=== PATIENT | female | born 1985 | race Caucasian/White ===

== ENCOUNTER 2021-07-09 04:58 | Emergency (ER) | payer OTHER, SELFPAY ==
--- NOTE | ~2021-07-09 | CT_ITS ---
EXAMINATION: CT abdomen pelvis wo con DATE: 07/09/2021 06:02 INDICATION: Right flank pain TECHNIQUE: Computed tomography (CT) of the abdomen and pelvis was performed without intravenous contr ast. Automated exposure control and iterative reconstruction technique were employed. Exam dose: 165 .89 mGy-cm total exam DLP. COMPARISON: 08/18/2005 CT renal scan FINDINGS: The lung bases are clear. Normal heart size. No pericardial or pleural effusion. The liver, gallbladder, bile ducts, spleen, pancreas, pancreatic duct and adrenal glands are unremark able. There are several nonobstructing right renal calculi, the largest approximately 4 mm. There is a pinp oint nonobstructing left renal calculus. There is an approximately 4 mm right ureterovesical junction calculus with mild right hydroureteronep hrosis. Normal caliber of the abdominal aorta. No intraperitoneal or retroperitoneal or pelvic mass lesion or adenopathy or ascites. The uterus and adnexal areas are unremarkable. The urinary bladder is relativ mame evacuated. No bowel obstruction or intraperitoneal free air. IMPRESSION: 4 mm right ureterovesical junction calculus with mild right hydroureteronephrosis Bilateral nephrolithiasis Reviewed, dictated and finalized at [facility]. Reviewed, dictated and finalized at [facility]. IMPRESSION: 4 mm right ureterovesical junction calculus with mild right hydrou reteronephrosis Bilateral nephrolithiasis
--- NOTE | ~2021-07-09 | XR_ITS ---
XR abdomen/kub 1V DATE: 07/09/2021 06:15 INDICATION: Right ureterovesical junction calculus TECHNIQUE: AP portable supine view COMPARISON: None FINDINGS: Approximate 4 mm calcified calculus is noted overlying the lower pole of the right kidney. No other definite urinary tract calcification is noted. No definite KUB correlate for the CT-demonstr ated right ureterovesical junction calculus is noted. There is a prominent amount of fecal material within the colon. No bowel obstruction is evident. The psoas shadows appear intact. No visceromegaly is noted. There is dextroscoliosis of the thoracic spine and levoscoliosis of the lumbar spine. IMPRESSION: Approximately 4 mm right renal lower pole calcified calculus Reviewed, dictated and finalized at [facility]. Reviewed, dictated and finalized at [facility].
[2021-07-09 05:04] VITALS: BP 149/105; PULSE 86; RESP 18; TEMP 36.6; O2SAT 99
--- NOTE | 2021-07-09 05:32 | ED.ABDPAIN ---
HPI - Abdominal Pain General Chief Complaint: Abdominal Pain Stated Complaint: kidney stone Time Seen by Provider: 07/09/21 05:14 Source: patient History of Present Illness HPI narrative: Patient presents with right-sided flank pain. Patient reports it woke her up from sleep this morning so she came to the ER for evaluation. Reports a history of ureteral stones and this feels like her prior stones. Reports stone typically are able to pass without procedural intervention. Pain is crampy, constant, primarily starts in her back and radiates across to her abdomen. She denies any urinary symptoms. Reports mild nausea denies any diarrhea. Denies prior abdominal surgeries Related Data Home Medications Medication Instructions Recorded Confirmed spironolactone 25 mg tablet 25 mg PO DAILY 06/01/21 06/01/21 norethindrone-e.estradiol-iron [Lo tablet 07/09/21 Loestrin Fe] Allergies Allergy/AdvReac Type Severity Reaction Status Date / Time No Known Allergies Allergy Verified 07/09/21 05:06 Review of Systems Review of Systems: CONSTITUTIONAL: Denies fever, chills, or sweats. EYES: Denies visual changes, redness, or discharge. ENT: Denies rhinorrhea, congestion, sore throat, or otalgia. CARDIOVASCULAR: Denies chest pain, palpitations, or edema. RESPIRATORY: Denies cough or dyspnea. GASTROINTESTINAL: Reports abdominal pain and nausea GENITOURINARY: Denies dysuria or hematuria. SKIN: Denies rash or itching. MUSCULOSKELETAL: Denies joint pain, or myalgia. NEUROLOGIC: Denies headache, numbness, dizziness, or weakness. PSYCHIATRIC: Denies anxiety or depression. All systems reviewed & are unremarkable except as noted in HPI and below PMFSH Past Medical History Medical History BMI 23.0-23.9, adult Family History Family History Father Family history of kidney stones COVID-19 Grandparent Family history of malignant neoplasm of breast Diabetes mellitus Mother History of migraine headaches Sibling No problems noted. Social History Social History Smoking status: Never smoker Second hand tobacco smoke exposure: Yes Alcohol intake: current Substance use: current Substance use type: marijuana Additional occupation/education comments: domestic goddess Gender identity (if verbalized by the patient): Female Exam Narrative: GENERAL: Well-appearing, well-nourished, in mild distress due to pain HEAD: Normocephalic, atraumatic. EYES: PERRLA and EOMI. ENT: Nares clear, no rhinorrhea or epistaxis. Mucous membranes moist. NECK: Supple. No masses. No JVD ABDOMEN: Soft, unable to reproduce pain with palpation of the abdomen nondistended, no CVA tenderness EXTREMITIES: Normal range of motion. No edema. SKIN: Warm, dry, no rash. NEURO: No focal deficits. Alert and oriented x3. PSYCH: Normal mood and affect. Course Reevaluation(s) Reevaluation #1: Patient with mild improved and pain results reviewed with patient. Based on size and location patient still may pass on its own however based on the size we will do outpatient referral to urology. We will continue supportive therapies at home. Patient comfortable with outpatient plan. Date: 07/09/21 Time: 06:58 Vital Signs Vital signs: Vital Signs Temperature 36.6 C 07/09/21 05:04 Pulse Rate 86 07/09/21 05:04 Respiratory Rate 18 07/09/21 05:04 Blood Pressure 149/105 H 07/09/21 05:04 Pulse Oximetry 99 07/09/21 05:04 Temperature 36.6 C 07/09/21 05:04 Pulse Rate 64 07/09/21 06:18 Respiratory Rate 20 07/09/21 06:18 Blood Pressure 121/93 H 07/09/21 06:18 Pulse Oximetry 100 07/09/21 06:18 MDM - Abdominal Pain MDM Narrative Medical decision making narrative: H&P as above, vss, pt looks clinically well, exam is unable to reproduce pain, labs with he
[2021-07-09 05:33] LABS: Basophils Percent Auto 0.1 % (0.2-1.2); Eosinophils Absolute Auto 0.1 K/mm3 (0-0.3); Eosinophils Percent Auto 1.2 % (0-4.4); Hematocrit 39.5 % (37.0-47.0); Hemoglobin 14.1 g/dL (12.0-15.0); Immature Granulocyte Absolute 0.01 K/mm3 (0.00-0.031); Immature Granulocyte Percent A 0.1 % (0-0.5); Lymphocytes Absolute Auto 3.23 K/mm3 (0.9-3.2); Lymphocytes Percent Auto 42.3 % (18.3-44.2); Mean Corpuscular HGB Conc 35.7 g/dl (32-36); Mean Corpuscular Hemoglobin 32.4 pg (26-34); Mean Corpuscular Volume 90.8 fl (80-100); Mean Platelet Volume 9.8 fl (7.4-10.4); Monocytes Absolute Auto 0.5 K/mm3 (0.1-0.6); Monocytes Percent Auto 5.9 % (2.6-8.5); Neutrophils Absolute Auto 3.8 K/mm3 (1.3-6.7); Neutrophils Percent Auto 50.4 % (45.5-73.1); Platelet Count Result 317 k/mm3 (150-375); Red Blood Count 4.35 M/mm3 (4.2-5.4); Red Cell Distribution Width 12.1 % (11.5-14.5); White Blood Count 7.6 K/mm3 (4.5-10.0)
[2021-07-09] MEDS: SODIUM CHLORIDE 0.9% IV 1,000 ML 999 ML IV CONT (05:36)
[2021-07-09] MEDS: MORPHINE SULFATE (*CRX) 4 MG/ML INJ IV PUSH ×2 (05:37→06:07)
[2021-07-09 05:46] LABS: Anion Gap 11 mmol/L (8-16); Blood Urea Nitrogen 14 mg/dL (7-17); Calcium 9.3 mg/dL (8.4-10.2); Carbon Dioxide 22 mmol/L (22-30); Chloride 105 mmol/L (98-107); Estimated Glomerular Filt Rate > 60; Glucose 172 mg/dL (65-110); Potassium 3.5 mmol/L (3.4-5.0); Sodium 138 mmol/L (137-145)
[2021-07-09 05:47] LABS: Add Urine Microscopic? YES; Appearance Urine Cloudy (Clear); Bacteria Urine Trace /hpf; Bilirubin Urine Negative (Negative); Blood Urine 3+ (Negative); Color Urine Yellow (Yellow); Glucose Urine UA Negative (Negative); Ketones Urine 1+ mg/dL (Negative); Leukocyte Esterase Ur Negative LEU/UL (Negative); Mucus Urine Rare /lpf; Nitrate Urine Negative (Negative); Protein Urine Negative (Negative); RBC Urine 21-50 /hpf (0-2); Specific Grav Ur 1.017 (1.001-1.035); Squamous Epithelial Cell Urine Many /hpf (Few); Urobilinogen Urine Negative mg/dL (<2.0)
[2021-07-09 06:18] VITALS: BP 121/93; PULSE 64; RESP 20; O2SAT 100
[2021-07-09] MEDS: HYDROmorphone HCL INJ (*CRX) 1 MG/ML SYR 0.5 MG IV PUSH (06:26)
[2021-07-09] MEDS: KETOROLAC 15 MG/ML VIAL (*BKC) IV PUSH (07:17)
[2021-07-09 07:43] VITALS: BP 123/73; PULSE 68; RESP 15; O2SAT 100
== END 2021-07-09 07:44 | disposition home or self-care (01) ==
PROVIDERS: Emergency Provider Emergency Medicine; PCP Family Medicine
DX: N13.2 Hydronephrosis with renal and ureteral calculous obstruction (principal); R31.9 Hematuria, unspecified
CPT/HCPCS: 36415; 74018; 74176; 80048; 81001; 81025; 85025; 96361; 96374; 96375; 96376; 99284; J1170; J1885; J2270; J7030

== ENCOUNTER 2022-06-19 19:53 | Emergency (ER) | payer OTHER, SELFPAY ==
--- NOTE | 2022-06-19 19:54 | ED.FEMALEGU ---
HPI - Female Genitourinary General Chief complaint: Urogenital-Female Stated complaint: UTI Time Seen by Provider: 06/19/22 19:54 Source: patient Mode of arrival: ambulatory Limitations: no limitations History of Present Illness HPI Narrative: Ms. Garay is a 36-year-old female patient presenting to the clinic today with complaints of possible UTI. She reports she started having some pain over her bladder and right lower abdomen and now it is radiating into her back. She does have a history of kidney stones and states that it does not necessarily feel like a kidney stone at this time. She reports that the pain started around 1:00 today and has gradually increased and gotten worse. She rates her pain currently a 7 out of 10. States that the pain in the back is more achy and then is sharp in the right lower abdomen and pelvis. She denies any vaginal discharge. Last menstrual period was 2-1/2 weeks ago. Related Data Home Medications Medication Instructions Recorded Confirmed norethindrone 1 mg-ethinyl tablet 07/09/21 estradiol 10 mcg (24)-iron 10 mcg(2) tablet (Lo Loestrin Fe) Allergies Allergy/AdvReac Type Severity Reaction Status Date / Time No Known Allergies Allergy Verified 06/19/22 19:56 Review of Systems Review of Systems: Pertinent positives per HPI. Patient denies any fever, chills, rash, headache, visual changes, dizziness, cough, runny nose, sore throat, shortness of breath, chest pain, palpitations, nausea, vomiting, diarrhea, constipation PMFSH Past Medical History Medical History BMI 23.0-23.9, adult Family History Family History Father Family history of kidney stones COVID-19 Grandparent Family history of malignant neoplasm of breast Diabetes mellitus Mother History of migraine headaches Sibling No problems noted. Social History Social History Smoking status: Never smoker Second hand tobacco smoke exposure: Yes Alcohol intake: current Substance use: current Substance use type: marijuana Additional occupation/education comments: domestic goddess Gender identity (if verbalized by the patient): Female Comments At the time of my signature, I reviewed and agree with the nursing past medical, surgical, social, and family history. There is no relevant family history pertinent to the patient complaint. Exam Narrative: General: Well-developed, well nourished, in no apparent distress. Head: Normocephalic, atraumatic. Cardio: Regular rate and rhythm, s1 and s2 normal, no murmur appreciated. Resp: Clear to auscultation bilaterally, no rhonchi, rales, wheezing or rubs. Abdomen: Soft, pliable, bowel sounds present in all quadrants, tender to palpation over the right lower abdomen and mid upper right abdomen, no organomegly, right-sided CVAT tenderness. Course Course Emergency Course: Portions of this record may have been created with voice recognition software. Level of Care: Express Care Visit Vital Signs Vital signs: Vital signs reviewed Transfer Transfered to: [facility] Transportation: Other (Private car) Transfer rationale: Right flank pain, right sided abdominal pain, hematuria, history of kidney stones-rule out ureteral colic Accepting physician: ADELA Bernard Transfer comments: Transferred to [facility] via private car MDM - Female Genitourinary MDM Narrative Medical decision making narrative: At the time of visit patient is restless in the exam chair. Urinalysis and UA Preg was obtained in the clinic today. Urine test was negative, urinalysis is negative for any sign of infection however there is 3+ blood in the urine as well as some bili. I suspect the patient has a ureteral colic. Recommend transfer to the ED for pain management a
[2022-06-19 20:02] VITALS: BP 152/103; PULSE 76; RESP 18; TEMP 35.9; O2SAT 100
== END 2022-06-19 20:16 | disposition short-term general hospital (02) ==
PROVIDERS: Emergency Provider Nurse Practitioner Family; PCP Family Medicine
DX: R10.9 Unspecified abdominal pain (principal); R31.9 Hematuria, unspecified; Z87.442 Personal history of urinary calculi
CPT/HCPCS: 81003; 81025; 99212; G0463

== ENCOUNTER 2022-06-19 20:30 | Emergency (ER) | payer OTHER, SELFPAY ==
--- NOTE | ~2022-06-19 | CT_ITS ---
EXAMINATION: CT abdomen pelvis wo con DATE: 06/19/2022 21:36 INDICATION: Right flank and right lower quadrant abdominal pain. History kidney stones. TECHNIQUE: Computed tomography (CT) of the abdomen and pelvis was performed without intravenous contr ast. Automated exposure control and iterative reconstruction technique were employed. Exam dose: 204 .03 mGy-cm total exam DLP. COMPARISON: 07/09/2021 CT abdomen pelvis FINDINGS: The lung bases are clear. Normal heart size. No pericardial or pleural effusion. The liver, gallbladder, bile ducts, spleen, pancreas and pancreatic duct as well as the adrenal gland s are normal. No renal mass lesion is evident. There is right hydroureteronephrosis due to a 4 mm calculus at the d istal ureter near the right ureterovesical junction. Urinary bladder is evacuated. Uterus and adnexal areas are unremarkable. Normal caliber of the abdominal aorta. No intraperitoneal or retroperitoneal or pelvic mass lesion or adenopathy or ascites. Normal appendix. No bowel obstruction or intraperitoneal free air. Small fat-containing umbilical hernia. Included skeletal structures are unremarkable. IMPRESSION: 4 mm distal right ureteral calculus with moderately prominent right hydroureteronephrosi s Reviewed, dictated and finalized at [facility]. Reviewed, dictated and finalized at [facility]. IMPRESSION: 4 mm distal right ureteral calculus with moderately prominent righ t hydroureteronephrosis
[2022-06-19 20:44] VITALS: BP 132/97; PULSE 84; RESP 16; TEMP 36.4; O2SAT 100
[2022-06-19 20:59] LABS: Basophils Percent Auto 0.3 % (0.2-1.2); Eosinophils Absolute Auto 0.1 K/mm3 (0-0.3); Eosinophils Percent Auto 0.7 % (0-4.4); Hematocrit 40.4 % (37.0-47.0); Hemoglobin 14.3 g/dL (12.0-15.0); Immature Granulocyte Absolute 0.02 K/mm3 (0.00-0.031); Immature Granulocyte Percent A 0.3 % (0-0.5); Mean Corpuscular HGB Conc 35.4 g/dl (32-36); Mean Corpuscular Hemoglobin 32.3 pg (26-34); Mean Corpuscular Volume 91.2 fl (80-100); Mean Platelet Volume 9.9 fl (7.4-10.4); Monocytes Absolute Auto 0.4 K/mm3 (0.1-0.6); Neutrophils Absolute Auto 5.2 K/mm3 (1.3-6.7); Neutrophils Percent Auto 70.7 % (45.5-73.1); Platelet Count Result 292 k/mm3 (150-375); Red Blood Count 4.43 M/mm3 (4.2-5.4); Red Cell Distribution Width 12.3 % (11.5-14.5); White Blood Count 7.4 K/mm3 (4.5-10.0)
[2022-06-19] MEDS: SODIUM CHLORIDE 0.9% IV 1,000 ML 999 ML IV CONT ×2 (21:05→23:49)
[2022-06-19 21:11] LABS: Alanine Aminotransferase 22 U/L (6-35); Albumin Level 4.4 g/dL (3.5-5.1); Alkaline Phosphatase 63 U/L (38-126); Anion Gap 11 mmol/L (8-16); Aspartate Amino Transferase 25 U/L (14-36); Bilirubin,Total 0.6 mg/dL (0.2-1.3); Blood Urea Nitrogen 13 mg/dL (7-17); Calcium 9.1 mg/dL (8.4-10.2); Carbon Dioxide 25 mmol/L (22-30); Chloride 103 mmol/L (98-107); Estimated Glomerular Filt Rate > 60; Glucose 128 mg/dL (65-110); Potassium 3.7 mmol/L (3.4-5.0); Sodium 139 mmol/L (137-145)
[2022-06-19 21:13] VITALS: BP 139/95; PULSE 68; RESP 16; O2SAT 100
[2022-06-19] MEDS: KETOROLAC 30 MG/ML VIAL (*BKC) IV PUSH (21:13)
[2022-06-19] MEDS: HYDROmorphone HCL INJ (*CRX) 1 MG/ML SYR 0.5 MG IV PUSH (21:13)
[2022-06-19 21:17] LABS: Bacteria Urine Trace /hpf; Mucus Urine Rare /lpf; RBC Urine >75 /hpf (0-2); Squamous Epithelial Cell Urine Rare /hpf (Few); WBC Urine 0-3 /hpf
[2022-06-19 21:24] LABS: Add Urine Microscopic? YES; Bilirubin Urine 1+ (Negative); Blood Urine 2+ (Negative); Color Urine Yellow (Yellow); Glucose Urine UA Negative (Negative); Ketones Urine Trace mg/dL (Negative); Leukocyte Esterase Ur Negative LEU/UL (Negative); Nitrate Urine Negative (Negative); Protein Urine Trace mg/dL (Negative); Specific Grav Ur >= 1.030 (1.001-1.035)
--- NOTE | 2022-06-19 21:24 | ED.GENADULT ---
HPI - General Adult General Chief complaint: Urogenital-Female Stated complaint: kidney stone Time Seen by Provider: 06/19/22 20:32 History of Present Illness HPI narrative: 36-year-old female presents to the emergency room sudden onset of right flank pain and urinary retention. Patient has a positive history of kidney stones, and states symptoms are similar. Patient states the pain is radiating into her groin area. Denies any dysuria or fevers. Related Data Home Medications Medication Instructions Recorded Confirmed norethindrone 1 mg-ethinyl 1 tablet PO DAILY 07/09/21 06/19/22 estradiol 10 mcg (24)-iron 10 mcg(2) tablet (Lo Loestrin Fe) Allergies Allergy/AdvReac Type Severity Reaction Status Date / Time No Known Allergies Allergy Verified 06/19/22 20:49 Review of Systems Review of Systems: CONSTITUTIONAL: Denies fever, chills, or sweats. EYES: Denies visual changes, redness, or discharge. ENT: Denies rhinorrhea, congestion, sore throat, or otalgia. CARDIOVASCULAR: Denies chest pain, palpitations, or edema. RESPIRATORY: Denies cough or dyspnea. GASTROINTESTINAL: Reports right flank pain GENITOURINARY: Reports decreased urinary output SKIN: Denies rash or itching. MUSCULOSKELETAL: Denies back pain, joint pain, or myalgia. NEUROLOGIC: Denies headache, numbness, dizziness, or weakness. PSYCHIATRIC: Denies anxiety or depression. PMFSH Past Medical History Medical History BMI 23.0-23.9, adult Family History Family History Father Family history of kidney stones COVID-19 Grandparent Family history of malignant neoplasm of breast Diabetes mellitus Mother History of migraine headaches Sibling No problems noted. Social History Social History Smoking status: Never smoker Second hand tobacco smoke exposure: Yes Alcohol intake: current Substance use: current Substance use type: marijuana Additional occupation/education comments: domestic goddess Gender identity (if verbalized by the patient): Female Exam Narrative: GENERAL: Well-appearing, well-nourished, no physical limitations, and in no acute distress. HEAD: Normocephalic, atraumatic. EYES: Conjunctivae normal, PERRLA and EOMI. CHEST: Clear to auscultation. No respiratory distress. No wheezes rales or rhonchi. No tenderness. HEART: Regular rate and rhythm. No murmur heard. Normal peripheral pulses. ABDOMEN: Soft, right lower quadrant and suprapubic tenderness, nondistended, normal active bowel sounds. BACK: Right CVA tenderness EXTREMITIES: Normal range of motion. No edema. No clubbing or cyanosis SKIN: Warm, dry, no rash. No noted wounds NEURO: No focal deficits. Alert and oriented x3. MAEW. CN's II-XI intact bilaterally, normal gait PSYCH: Cooperative. Normal mood and affect. Course Vital Signs Vital signs: Vital Signs Temperature 36.4 C 06/19/22 20:44 Pulse Rate 84 06/19/22 20:44 Respiratory Rate 16 06/19/22 20:44 Blood Pressure 132/97 H 06/19/22 20:44 Pulse Oximetry 100 06/19/22 20:44 Oxygen Delivery Room Air 06/19/22 20:44 Temperature 36.4 C 06/19/22 20:44 Pulse Rate 77 06/20/22 00:45 Respiratory Rate 14 06/20/22 00:45 Blood Pressure 111/85 06/20/22 00:45 Pulse Oximetry 100 06/20/22 00:45 Oxygen Delivery Room Air 06/19/22 20:44 Medical Decision Making [facility] Narrative Medical decision making narrative: 36-year-old female presented with sudden onset of right flank pain. CT scan showed a mild right-sided hydro utero nephrosis with 4 mm stone at the UVJ. Patient was given 2 L of fluid and pain medicine. States her pain reduced from a 10 to a 4. Patient is requesting to go home and despite the inability to completely control her pain. I will have patient follow-up with urology if her pain co
[2022-06-19 21:25] LABS: Appearance Urine Slightly Cloudy (Clear)
[2022-06-19 22:27] VITALS: PULSE 76; RESP 16; O2SAT 100
[2022-06-19] MEDS: fentaNYL CITRATE INJ (*CRX) 100 MCG/2 ML VIAL 50 MCG IV PUSH ×2 (22:33→23:49)
[2022-06-19 23:04] VITALS: BP 119/79; PULSE 67; RESP 18; O2SAT 99
[2022-06-19] MEDS: ONDANSETRON INJ 4 MG/2 ML VIAL IV PUSH (23:49)
[2022-06-20 00:45] VITALS: BP 111/85; PULSE 77; RESP 14; O2SAT 100
[2022-06-20] MEDS: fentaNYL CITRATE INJ (*CRX) 100 MCG/2 ML VIAL 25 MCG IV PUSH (01:30)
[2022-06-20 01:59] VITALS: BP 120/90; PULSE 79; RESP 14; O2SAT 100
== END 2022-06-20 02:00 | disposition home or self-care (01) ==
PROVIDERS: Emergency Provider Nurse Practitioner Family; PCP Family Medicine
DX: N13.2 Hydronephrosis with renal and ureteral calculous obstruction (principal); Z87.442 Personal history of urinary calculi
CPT/HCPCS: 36415; 74176; 80053; 81001; 81003; 81025; 85025; 96361; 96374; 96375; 96376; 99284; J1170; J1885; J2405; J3010; J7030

== ENCOUNTER 2023-11-30 09:20 | Emergency (ER) | payer OTHER, SELFPAY ==
--- NOTE | ~2023-11-30 | US_ITS ---
EXAMINATION: US venous doppler LE RT DATE: 11/30/2023 10:11 INDICATION: Right lower limb swelling and pain. TECHNIQUE: Grayscale ultrasound images without and with compression and Doppler ultrasound images of the right lower extremity veins were obtained. COMPARISON: None. FINDINGS: The visualized portions of right common femoral vein, profunda (deep) femoral vein, femoral vein, pop liteal vein, peroneal veins, posterior tibial veins, and greater saphenous vein outflow are patent. T here is thrombosis of a superficial vein behind the knee. IMPRESSION: 1. No deep venous thrombosis. 2. Thrombosis of a superficial vein behind the knee. Reviewed, dictated and finalized at [facility]. [facility]
[2023-11-30 09:35] VITALS: BP 109/67; PULSE 98; RESP 16; TEMP 36.8; O2SAT 98
[2023-11-30 10:30] VITALS: BP 128/74; PULSE 82; RESP 16; O2SAT 98
--- NOTE | 2023-11-30 10:53 | ED.EXTPRO ---
HPI - Extremity Problem General Chief complaint: Extremity Problem,Nontraumatic Stated complaint: R LEG PAIN, 31WKS PREG Time Seen by Provider: 11/30/23 09:44 History of Present Illness HPI Narrative: This is a 38-year-old female, at 30 weeks who was referred to the emergency department from her OB doctor for pain and swelling of the right thigh. The patient states this morning she woke at approximately 04:00 and noticed pain, small area of redness and swelling of veins in the right thigh. She denies swelling elsewhere, chest pain or shortness of breath. She states the redness has improved since then. She has no other complaints at this time. Related Data Home Medications Medication Instructions Recorded Confirmed norethindrone 1 mg-ethinyl 1 tablet PO DAILY 07/09/21 06/19/22 estradiol 10 mcg (24)-iron 10 mcg(2) tablet (Lo Loestrin Fe) Allergies Allergy/AdvReac Type Severity Reaction Status Date / Time No Known Allergies Allergy Verified 11/30/23 09:38 Review of Systems Review of Systems: CONSTITUTIONAL: Denies fever, chills, or sweats. CARDIOVASCULAR: Denies chest pain, palpitations, or edema. RESPIRATORY: Denies cough or dyspnea. GASTROINTESTINAL: Denies abdominal pain, nausea, vomiting, or diarrhea. GENITOURINARY: Denies dysuria or hematuria. SKIN: Denies rash or itching. MUSCULOSKELETAL: Right leg swelling and redness Denies back pain, joint pain, or myalgia. NEUROLOGIC: Denies headache, numbness, dizziness, or weakness. PSYCHIATRIC: Denies anxiety or depression. [facility] Past Medical History Medical History BMI 23.0-23.9, adult No significant past medical history Surgical History Surgical History No significant past surgical history Family History Family History Father Family history of kidney stones COVID-19 Grandparent Family history of malignant neoplasm of breast Diabetes mellitus Mother History of migraine headaches Sibling No problems noted. 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 HEAD: Normocephalic, atraumatic. EYES: PERRLA and EOMI. CHEST: Clear to auscultation. No respiratory distress. No wheezes rales or rhonchi HEART: Regular rate and rhythm. No murmur heard. Normal peripheral pulses. ABDOMEN: Soft, gravid, nontender, nondistended, normal active bowel sounds. EXTREMITIES: There is a 2 cm area of erythema noted to the posterior aspect of the right thigh, just proximal to the knee. There is mild swelling of superficial veins without mass or tenderness. Normal range of motion. No edema. SKIN: Skin otherwise warm, dry, no rash. NEURO: Alert and oriented x3. No focal deficit. Moving all 4 limbs spontaneously PSYCH: Normal mood and affect. Course Course Emergency Course: 10:54 - heart rate 143. ultrasound negative for DVT and demonstrates a superficial venous thrombus. 11:24 - I discussed findings with OB, Dr. Spear. Will discharge with hot compresses and leg elevation. I discussed the findings and recommendations with the patient. Discussed return and emergency precautions including signs/symptoms of DVT and respiratory distress. The patient voiced understanding and agreement with the plan. All questions answered to her satisfaction. Vital Signs Vital signs: Vital Signs Temperature 98.2 F 02/
[2023-11-30 11:32] VITALS: BP 132/76; PULSE 78; RESP 16; TEMP 36.6; O2SAT 100
== END 2023-11-30 11:35 | disposition home or self-care (01) ==
PROVIDERS: Emergency Provider Preventive Medicine Aerospace Medicine; PCP Family Medicine
DX: O99.413 Diseases of the circulatory system complicating pregnancy, third trimester (principal); I82.811 Embolism and thrombosis of superficial veins of right lower extremity; Z3A.30 30 weeks gestation of pregnancy
CPT/HCPCS: 93971; 99284

== ENCOUNTER 2024-01-30 09:52 | Observation (INO) | payer OTHER, SELFPAY ==
--- NOTE | ~2024-01-30 | US_ITS ---
EXAMINATION: US OB BPP wo non-stress DATE: 01/30/2024 11:34 INDICATION: Contractions. TECHNIQUE: Real-time pelvic ultrasound was performed. The interpreting radiologist was not present fo r the study. COMPARISON: None. FINDINGS: There is a single living fetus in vertex presentation. The placenta is fundal. cardiac activit y and movement are demonstrated. heart rate is 121 beats per minute (bpm). Amniotic fluid index is above normal limits measuring 33 cm (normal range for gestational age is 7.2-22.6 cm). Biophysical profile performed by the technologist: breathing (30 sec sustained breathing in 30 minutes): 2 out of 2 movement (3 gross body movements in 30 minutes): 2 out of 2 tone (one episode of cotdeai-tinccgrdg-wtetydc limb movement): 2 out of 2 Amniotic fluid pocket (2 cm): 2 out of 2 Total score: 8 out of 8 IMPRESSION: 1. Single living intrauterine in vertex presentation with heart rate of 121 bpm. 2. Normal placenta. 3. Biophysical profile 8 out of 8. 4: Polyhydramnios. Reviewed, dictated and finalized at location [facility].
[2024-01-30 10:04] VITALS: BP 110/70; PULSE 87
[2024-01-30 10:15] VITALS: BP 111/67; PULSE 84
[2024-01-30 10:30] VITALS: BP 98/73; PULSE 96
[2024-01-30 10:45] VITALS: BP 98/64; PULSE 88
[2024-01-30 11:00] VITALS: BMI 30.7
--- NOTE | 2024-01-30 12:02 | LDADM ---
This patient, Nataliia Garay, was admitted to Labor/Delivery/Recovery 108 on 01/30/24 at 09:52. Plans for labor, pain management and were discussed with patient. Patient/family oriented to hospital policies and general routines including ID bracelet, bed and alarms, visiting hours, pain management, procedures, bathroom and other care routines, personal items, smoking policy, room service/diet and guest tray routines, infant security routines, and visiting hours. Patient/Family are encouraged to report perceived risks to care and to ask questions if they do not understand what they are told or what they should do. See OBIX for further documentation.
--- NOTE | 2024-01-30 12:08 | PC.NURSE ---
0952: Patient presents to L&D from Dr. Spear's office. Patient was gissell in office and was sent over for monitoring and a BPP. Patient states she feels some mild contractions. 1147: Called Dr. Spear and notified that patient has a cateogry I tracing and is gissell every 8-11 minutes. Patient has no complaints. MD notified BPP was 05/09. 1149: MD at bedside discussing induction for 01/31/24 with patient. Verbal orders received for discharge. Patient agrees with plan of care and has no questions at this time.
--- NOTE | 2024-02-28 18:30 | PM.OBTRLD ---
OB - Triage/Final Diagnosis Visit Information Comments/Additional reasons for admission: I have assessed the risk for this patient, Nataliia Garay, and determined that she would benefit from observation care. Final Diagnosis (1) Non-reassuring status, delivered, current hospitalization: Code(s): O75.89 - Other specified complications of labor and delivery Status: Acute
== END 2024-01-30 12:01 | disposition home or self-care (01) ==
PROVIDERS: Admitting Provider Obstetrics & Gynecology; PCP Family Medicine; Visit Provider Obstetrics & Gynecology
DX: O75.89 Other specified complications of labor and delivery (principal); Z3A.39 39 weeks gestation of pregnancy
CPT/HCPCS: 76819; G0378; G0379

== ENCOUNTER 2024-01-31 04:36 | Inpatient (IN) | payer OTHER, SELFPAY ==
[2024-01-31] VITALS (122 sets, daily range): BP systolic 78–128; BP diastolic 52–85; PULSE 59–122; RESP 18–20; TEMP 36.6–37.9; O2SAT 93–100; BMI 31.1
--- NOTE | 2024-01-31 05:15 | LDADM ---
This patient, Naatliia Garay, was admitted to Labor/Delivery/Recovery 106 on 01/31/24 at 04:36. Plans for labor, pain management and were discussed with patient. Patient/family oriented to hospital policies and general routines including ID bracelet, bed and alarms, visiting hours, pain management, procedures, bathroom and other care routines, personal items, smoking policy, room service/diet and guest tray routines, infant security routines, and visiting hours. Patient/Family are encouraged to report perceived risks to care and to ask questions if they do not understand what they are told or what they should do. See OBIX for further documentation.
[2024-01-31 05:37] LABS: Basophils Percent Auto 0.2 % (0.2-1.2); Eosinophils Absolute Auto 0.1 K/mm3 (0-0.3); Eosinophils Percent Auto 0.7 % (0-4.4); Hematocrit 31.3 % (37.0-47.0); Hemoglobin 10.8 g/dL (12.0-15.0); Immature Granulocyte Absolute 0.09 K/mm3 (0.00-0.031); Immature Granulocyte Percent A 0.9 % (0-0.5); Lymphocytes Absolute Auto 1.76 K/mm3 (0.9-3.2); Lymphocytes Percent Auto 17.8 % (18.3-44.2); Mean Corpuscular HGB Conc 34.5 g/dl (32-36); Mean Corpuscular Volume 95.7 fl (80-100); Mean Platelet Volume 10.1 fl (7.4-10.4); Monocytes Absolute Auto 0.5 K/mm3 (0.1-0.6); Neutrophils Absolute Auto 7.5 K/mm3 (1.3-6.7); Neutrophils Percent Auto 75.4 % (45.5-73.1); Platelet Count Result 269 k/mm3 (150-375); Red Blood Count 3.27 M/mm3 (4.2-5.4); Red Cell Distribution Width 14.2 % (11.5-14.5); White Blood Count 9.9 K/mm3 (4.5-10.0)
[2024-01-31] MEDS: OXYTOCIN 30 UNITS/NS 500 ML 30 UNITS/500 ML BAG IV CONT (05:51)
[2024-01-31] MEDS: LACTATED RINGERS 1,000 ML 125 ML IV CONT ×3 (05:52→13:31)
--- NOTE | 2024-01-31 07:35 | WPDHPUPDATE1 ---
History and Physical Update Update Date/Time: 01/31/24 07:35 38-year-old multiparous female at 39 weeks gestation with polyhydramnios. She presents for induction of labor. Artificial rupture of membranes -clear fluid, cervical exam 3 cm to 4 cm / 60%/ -1. Reassuring status, intermittently gissell, Pitocin induction, expectant management. History and Physical has been reviewed, including an updated exam of the patient. There are NO changes in the patient's condition. Risks, benefits, and alternatives have been discussed and questions answered. Patient agrees to proceed with procedure.
--- NOTE | 2024-01-31 07:42 | WPDANESEPP ---
Anes - Eval Pre Procedure Procedure: labor epidural Date/Time: 01/31/24 07:42 Surgeon: nancy Preop Diagnosis: pain during labor Pre Op Diagnosis: Induction of Labor Patient Data Age: 38 Gender: F Height: 1.5 m Weight: 70 kg Last Vital Signs Temp 36.8 C 01/31/24 05:51 Pulse 99 01/31/24 07:30 BP 106/54 L 01/31/24 07:30 O2 Del Method Room Air 01/31/24 05:15 Allergies Allergy/AdvReac Type Severity Reaction Status Date / Time No Known Allergies Allergy Verified 01/31/24 05:21 Home Medications Medication Instructions Recorded Confirmed Type norethindrone 1 mg-ethinyl 1 tablet PO DAILY 07/09/21 01/31/24 History estradiol 10 mcg (24)-iron 10 mcg(2) tablet (Lo Loestrin Fe) hydrocodone 5 mg-acetaminophen 325 1 tablet PO Q8H PRN pain #15 tabs 06/20/22 Rx mg tablet ondansetron 4 mg disintegrating 4 mg PO Q8H #14 tabs 06/20/22 Rx tablet tamsulosin 0.4 mg capsule (Flomax) 0.4 mg PO DAILY #10 caps 06/20/22 Rx Laboratory Tests 01/31/24 05:25 WBC 9.9 K/mm3 (4.5-10.0) RBC 3.27 L M/mm3 (4.2-5.4) Hgb 10.8 L D g/dL (12.0-15.0) Hct 31.3 L % (37.0-47.0) MCV 95.7 fl (80-100) MCH 33.0 pg (26-34) MCHC 34.5 g/dl (32-36) RDW 14.2 % (11.5-14.5) Plt Count 269 k/mm3 (150-375) MPV 10.1 fl (7.4-10.4) Immature Gran % (Auto) 0.9 H % (0-0.5) Neut % (Auto) 75.4 H % (45.5-73.1) Lymph % (Auto) 17.8 L % (18.3-44.2) Davis % (Auto) 5.0 % (2.6-8.5) Eos % (Auto) 0.7 % (0-4.4) Baso % (Auto) 0.2 % (0.2-1.2) Lymph # (Auto) 1.76 K/mm3 (0.9-3.2) Davis # (Auto) 0.5 K/mm3 (0.1-0.6) Eos # (Auto) 0.1 K/mm3 (0-0.3) Baso # (Auto) 0.0 K/mm3 (0.0-0.1) Abs Immat Gran (auto) 0.09 H K/mm3 (0.00-0.031) Absolute Neuts (auto) 7.5 H K/mm3 (1.3-6.7) Absolute Nucleated RBC 0.000 K/mm3 (0.0-0.012) Nucleated RBC % 0.0 % (0.0-0.2) RPR Pending Blood Type O Positive Antibody Screen Negative Patient hx anesthesia problems: none Family hx anesthesia problems: none Results Review: All pre-operative results and documents have been reviewed as part of the pre-operative evaluation. [facility] Past Medical History Medical History (Updated 01/31/24 @ 07:43 by Lien Alvarez CRNA) BMI 23.0-23.9, adult Infected piercing of trunk IUP (intrauterine ), incidental Kidney stone Marijuana use Migraines No significant past medical history Obesity Ureteral stone with hydronephrosis Surgical History Surgical History No significant past surgical history Family History Family History Father Family history of kidney stones COVID-19 Grandparent Family history of malignant neoplasm of breast Diabetes mellitus Mother History of migraine headaches Sibling No problems noted. Social History Social History Smoking status: Never smoker Second hand tobacco smoke exposure: Yes Alcohol intake: current Substance use: current Substance use type: marijuana Do You Feel Safe in your Home?: Yes Lack of Transportation: No Lack of Food: Never True Current Housing: I Have Housing Concerned About Future Housing: No Difficulty Paying Gas/Electric Bills: No Difficulty Paying for Meds: No Currently Unemployed: No Education: Associate Degree Difficulty w/ Childcare or Family Care: No Living arrangements: with family Occupation/Education: occupation Additional occupation/education comments: domestic goddess Gender identity (if verbalized by the patient): Female Exam Day of Procedure 01/31/24 07:42
[2024-01-31 09:10] LABS: Rapid Plasma Reagin Non-Reactive (NonReactive)
[2024-01-31] MEDS: fentaNYL CITRATE INJ (*CRX) 100 MCG/2 ML VIAL 50 MCG IV PUSH (09:34)
[2024-01-31] MEDS: SODIUM CHLORIDE 0.9% IV 300 ML 600 ML I-UTERINE (12:46)
--- NOTE | 2024-01-31 15:17 | P.PCNOB_ITS ---
OB - Vaginal Delivery Note Procedure Delivery date: 01/31/24 Induction method: AROM and Per Pitocin Protocol Delivery monitor: External FHT and External Uterine Route of delivery: Episiotomy description: None Laceration Description: Perineal - 2nd Degree Delivery repair: vicryl Specimen: No Quantitative Blood Loss (ml): 300 Anesthesia type: Epidural Disposition: Floor Complications: No immediate complications [place] Baby Date of : 01/31/24 Time of : 15:02 Weeks of gestation at delivery: 39
[2024-01-31] MEDS: OXYTOCIN 30 UNITS/NS 500 ML 30 UNITS/500 ML BAG 125 UNITS IV CONT (15:41)
[2024-01-31] MEDS: IBUPROFEN 600 MG TABLET PO (17:18)
[2024-01-31] MEDS: WITCH HAZEL 40 PADS 1 PAD TOPICAL (17:19)
[2024-01-31] MEDS: BENZOCAINE 20% AER SPR (*SP) 56 GM CAN 1 SPRAY TOPICAL (17:19)
[2024-01-31] MEDS: SIMETHICONE 80 MG TAB.CHEW PO ×2 (17:20→19:58)
--- NOTE | 2024-01-31 19:09 | OBPPTRN ---
Patient transferred to post room #284 via wheelchair. Support person present. Oriented to unit, room, information board, rooming in, admission packet and security measures. Patient verbalizes understanding.
[2024-01-31] MEDS: ACETAMINOPHEN 325 MG TABLET 650 MG PO (19:58)
[2024-02-01] MEDS: IBUPROFEN 600 MG TABLET PO ×2 (04:18→15:02)
[2024-02-01 04:45] LABS: Hematocrit 28.8 % (37.0-47.0); Hemoglobin 9.7 g/dL (12.0-15.0)
[2024-02-01] MEDS: DOCUSATE SODIUM 100 MG CAPSULE PO ×2 (07:20→15:02)
[2024-02-01] MEDS: MULTIVIT/MIN/PREN/FOL AC/IRON TABLET 1 TAB PO (07:20)
[2024-02-01] MEDS: POLYSACCHARIDE IRON COMPLEX 150 MG CAPSULE PO ×2 (07:20→15:02)
[2024-02-01] MEDS: ACETAMINOPHEN 325 MG TABLET 650 MG PO (07:21)
[2024-02-01] MEDS: LANOLIN (LANSINOH) 7.5 GM CREAM 1 APPLIC TOPICAL (07:22)
[2024-02-01] MEDS: WITCH HAZEL 40 PADS 1 PAD TOPICAL (07:22)
[2024-02-01 08:00] VITALS: BP 101/64; PULSE 82; RESP 18; TEMP 36.6; O2SAT 100
--- NOTE | 2024-02-01 08:22 | PM.OBPNVD ---
OB - PN: Subj Subjective Date/time seen: 02/01/24 08:22 Patient comments: no complaints, pain well controlled, incisional pain, tolerating diet and flatus present OB - PN: Obj Data Labs 02/01/24 04:11 Labs: Laboratory Results - last 24 hr 01/31/24 02/01/24 05:25 04:11 Hgb 9.7 L Hct 28.8 L RPR Non-reactive OB - PN A/P Plan day: 1 Plan: routine care Comments: No problems, routine care Time Spent With Patient Time: Total time spent is greater than 50% in coordination of care (as documented) at patient's floor/unit and/or counseling patient: Exam Const: General: comfortable, no acute distress and alert Resp: Effort & Inspection: normal respiratory effort Auscultation: no crackles, no rales and no rhonchi Cardio: Rate: regular rate Heart sounds: no click, no murmurs and no rubs GI: Inspection: non-distended GI Palp: No Tenderness to palpation present (GI) Auscultation: normal bowel sounds Other: Incision - CDI Extrem: General: normal to inspection, no pedal edema and no calf tenderness
--- NOTE | 2024-02-01 11:48 | WPDANLDPN2 ---
Anes-Prog Note L&D Date/Time: 02/01/24 11:48 Neuro status: Neuro function grossly intact. Cardiovascular status: normal Respiratory status: normal Airway patency: baseline Mental status: baseline Post-Op hydration status: normal Vital Signs: Last Vital Signs Temp 36.6 C 02/01/24 08:00 Pulse 82 02/01/24 08:00 Resp 18 02/01/24 08:00 BP 101/64 02/01/24 08:00 Pulse Ox 100 02/01/24 08:00 O2 Del Method Room Air 01/31/24 05:15 Pain score (VAS): 0 Post-procedural complaints: none Patient feedback: Patient satisfied with anesthetic care.
--- NOTE | 2024-02-01 13:39 | PC.NURSE ---
[id number] Mother verbalizes she is able to independently latch with appropriate positioning and alignment. She denies any nipple discomfort and is responsively . Infant is currently meeting outcomes for weight, output, jaundice, blood sugar and feeding frequencies of 8-12 times in 24 hours, mom reports currently baby is nursing about every 1.5-2 hours for about 10 min. Mother declines any additional assistance or education at this time. Mother is encouraged to call for assistance if her doesn?t latch, pain with latching, questions or concerns. Mother voiced understanding of information shared along with the mom/baby guide for an additional resource. Reported to the Primary RN.
== END 2024-02-01 18:30 | disposition home or self-care (01) | DRG 807 ==
LOC: ANHLDR 04:45 → ANHOB2 19:25
PROVIDERS: Admitting Provider Obstetrics & Gynecology; PCP Family Medicine; Visit Provider Obstetrics & Gynecology
DX: O40.3XX0 Polyhydramnios, third trimester, not applicable or unspecified (principal); Z37.0 Single live birth; O70.1 Second degree perineal laceration during delivery; O69.81X0 Labor and delivery complicated by cord around neck, without compression, not applicable or unspecified; Z3A.39 39 weeks gestation of pregnancy
CPT/HCPCS: 36415; 76819; 85014; 85018; 85025; 86592; 86850; 86900; 86901; A9270; G0378; G0379; J2590; J2795; J3010; J7030; J7120